=== PATIENT | male | born 2000 | race Caucasian/White ===

== ENCOUNTER 2020-01-12 13:40 | Emergency (ER) | payer OTHER ==
[~2020-01-12] VITALS: Ht 175.3 cm; Wt 70.4 kg
[2020-01-12 15:40] VITALS: BP 121/64
[2020-01-12] MEDS ORDERED: LIDOCAINE 1% Multi-Dose 20 ML VIAL. INJ ONE (16:00)
[2020-01-12] MEDS ORDERED: DIPH,PERTUSS(ACELL),TET VAC/PF 0.5 ML SYRINGE. VAX IM ONE (16:15)
--- NOTE | 2020-01-12 16:26 | RAD ---
Left fourth digit, 3 views INDICATION: Ring finger injury. COMPARISON: None. FINDINGS: 3 views of the left fourth digit show foreshortening of the volar aspect of the plate of the distal phalanx, equivocal for the donor site of an age-indeterminate fracture with no visible fracture fragment. Alignment is anatomic. Asymmetric soft tissue swelling is not apparent. The distal phalanx shows a longitudinal lucency in the dorsal cortex favored to represent a vascular groove. There is no displaced fracture shown. The soft tissues are otherwise unremarkable. IMPRESSION: Equivocal foreshortening of the volar plate of the distal phalanx fourth digit. Consider developmental variation or old trauma. Correlate for localized tenderness and mechanism of injury. Otherwise negative x-ray. Electronically signed by: Herminio Macedo MD (01/12/2020 4:23 PM) [id number]
--- NOTE | 2020-01-12 17:47 | PHYS DOC ---
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 He is right handed. Review of Systems Review of Systems Constitutional: Denies fever or chills [] Musculoskeletal: Reports left ring finger contusion Integument: Denies rash or skin lesions [] Neurologic: Denies headache, focal weakness or sensory changes [] All other systems were reviewed and found to be within normal limits, except as documented in this note. Current Medications Current Medications Current Medications Medications (Trade) Dose Ordered Sig/Susana Start Time Stop Time Status Last Admin Dose Admin Diphtheria/ Tetanus/Acell Pertussis (ADACEL TDap SYRINGE) 0.5 ml ONCE ONCE 01/12/20 16:15 01/12/20 16:16 DC 01/12/20 16:41 0.5 ML Lidocaine HCl (Lidocaine 1% 20ml Vial) 20 ml 1X ONCE 01/12/20 16:00 01/12/20 16:01 DC 01/12/20 16:40 20 ML Allergies Allergies Allergies Coded Allergies Type Severity Reaction Last Updated Verified No Known Drug Allergies 05/15/16 No Physical Exam Physical Exam Constitutional: Well developed, well nourished, no acute distress, non-toxic appearance. [] Skin: Warm, dry, no erythema, no rash. [] Back: No tenderness, no CVA tenderness. [] Extremities: Left ring finger with no obvious deformity, there is an obvious 90% subungual hematoma noted on the left ring finger nail bed. There is tenderness on palpation of the distal end of the left ring finger. Full range of motion to the left ring finger. Adequate ulnar sensation to the left ring finger. +2 left radial pulse. Cap refill less than 2 seconds the left ring finger. Neurologic: Alert and oriented X 3, normal motor function, normal sensory function, no focal deficits noted. [] Psychologic: Affect normal, judgement normal, mood normal. [] Current Patient Data Vital Signs Vital Signs Date Time Temp Pulse Resp B/P (MAP) Pulse Ox O2 Delivery O2 Flow Rate FiO2 01/12/20 15:40 98.3 62 18 121/64 (83) 99 Room Air 98.3 EKG EKG [] Radiology/Procedures Radiology/Procedures []PROCEDURE: FINGER(S) LEFT Left fourth digit, 3 views INDICATION: Ring finger injury. COMPARISON: None. FINDINGS: 3 views of the left fourth digit show foreshortening of the volar aspect of the plate of the distal phalanx, equivocal for the donor site of an age-indeterminate fracture with no visible fracture fragment. Alignment is anatomic. Asymmetric soft tissue swelling is not apparent. The distal phalanx shows a longitudinal lucency in the dorsal cortex favored to represent a vascular groove. There is no displaced fracture shown. The soft tissues are otherwise unremarkable. IMPRESSION: Equivocal foreshortening of the volar plate of the distal phalanx fourth digit. Consider developmental variation or old trauma. Correlate for localized tenderness and mechanism of injury. Otherwise negative x-ray. Electronically signed by: Linda Macedo MD (01/12/2020 4:23 PM) [id number] DICTATED and SIGNED BY: LINDA MACEDO MD DATE: 01/12/20 1623 Procedure note Left ring finger digital block was done by me using 1% of lidocaine successfully. An electrocutery pen was used to make three bore holes on the nail bed and the nail was successfully drained and covered by me. Course & Med Decision Making Course & Med Decision Making Pertinent Labs and Imaging studies reviewed. (See chart for details) This is a 19-year-old male patient who presents to the ED today with left ring finger contusion. Left ring finger x-rays interpreted by radiologist were negative for any acute findings. The head 90% subungual hematoma to the left ring finger which was drained by me as noted in procedures. Patient was given tetanus injection. Ice elevation encouraged. Provided return precautions and d ischarged in stable condition. Dragon Disclaimer Dragon Disclaimer This electronic medical record was generated, in whole or in part, using a voice recognition dictation system. Departure Departure Impression: Primary Impression: Contusion of left ring finger Additional Impression: Subungual hematoma of left ring finger Disposition: HOME, SELF-CARE Condition: STABLE Referrals: NO PCP (PCP) Follow-up with your own doctor in 1-2 weeks as needed Patient Instructions: Contusion, Subungual Hematoma, [id number] Additional Instructions: You were seen for left ring finger contusion, you also have a subungual hematoma which was drained in the emergency room. Keep the area clean and dry. You can take Tylenol or Motrin as needed for pain. Try to ice and elevate the finger. Follow-up with your own doctor in 1-2 weeks as needed. Problem Qualifiers Primary Impression: Contusion of left ring finger Encounter type: initial encounter Damage to nail status: without damage Qualified Codes: S60.042A - Contusion of left ring finger without damage to nail, initial encounter YUSRA GILES APRN Jan 12, 2020 17:47
== END 2020-01-12 18:00 | disposition home or self-care (01) ==
LOC: ER 13:40
DX: S60.142A Contusion of left ring finger with damage to nail, initial encounter (principal); W23.0XXA Caught, crushed, jammed, or pinched between moving objects, initial encounter; Y93.89 Activity, other specified; Y92.511 Restaurant or cafe as the place of occurrence of the external cause; Y99.0 Civilian activity done for income or pay
CPT/HCPCS: 11740; 73140; 90471; 90715; 99284; J3490